=== PATIENT | female | born 1970 | race Caucasian/White ===

== ENCOUNTER 2020-05-07 15:52 | Emergency (ER) | payer OTHER ==
[~2020-05-07] VITALS: Ht 167.6 cm; Wt 83.9 kg
[2020-05-07 16:09] VITALS: Ht 167.6 cm; Wt 83.9 kg
[2020-05-07 17:56] VITALS: BP 121/92
== END 2020-05-07 17:56 | disposition home or self-care (01) ==
LOC: ED 15:52
DX: L03.115 Cellulitis of right lower limb (principal); E03.9 Hypothyroidism, unspecified
CPT/HCPCS: 90715